=== PATIENT | male | born 1945 | race Two or more races ===

== ENCOUNTER 2024-07-24 09:17 | Outpatient (CLI) | payer OTHER | END 2024-07-24 09:18 | disposition home or self-care (01) | LOC: NUCLEAR 09:17 | PROVIDERS: ATTEND Internal Medicine Hematology & Oncology | DX: I82.402 Acute embolism and thrombosis of unspecified deep veins of left lower extremity (principal); I87.2 Venous insufficiency (chronic) (peripheral) ==